=== PATIENT | female | born 1955 | race Caucasian/White ===

== ENCOUNTER 2025-10-19 12:01 | Outpatient (CLI) | payer MEDICARE, OTHER ==
--- NOTE | 2025-10-19 12:50 | RADIOLOGY REPORT ---
DI CHEST,TWO VIEWS CLINICAL HISTORY: SOB COMPARISON: None TECHNIQUE: Frontal and lateral view of the chest was obtained FINDINGS: Lines and Tubes: None Lungs: No focal consolidation. Pleura: Moderate bilateral effusions Cardiomediastinal contours: Cardiomegaly Bones: No acute osseous abnormality. IMPRESSION: Cardiomegaly with moderate bilateral pleural effusions
[2025-10-21] MEDS ORDERED: ANAS1TAB10 PO (02:22)
[2025-10-21] MEDS ORDERED: ATOR40TA72 PO (02:22)
[2025-10-21] MEDS ORDERED: LISI5TAB22 PO (02:22)
[2025-10-21] MEDS ORDERED: DULA0.75 SQ (02:22)
[2025-10-25] MEDS ORDERED: ALBU18HF2 PO (11:04)
[2025-10-25] MEDS ORDERED: FURO20TA4 PO (11:04)
[2025-10-25] MEDS ORDERED: BENZ-268 PO (11:05)
[2025-10-25] MEDS ORDERED: GLIP5TAB23 PO (11:06)
== END 2025-10-19 23:59 | disposition home or self-care (01) ==
LOC: RAD 12:01
PROVIDERS: ATTEND Family Medicine
DX: I51.7 Cardiomegaly (principal); R06.02 Shortness of breath; J90 Pleural effusion, not elsewhere classified
CPT/HCPCS: 71046